=== PATIENT | male | born 1985 | race Caucasian/White ===

== ENCOUNTER 2018-12-18 03:36 | Emergency (ER) | payer OTHER | END 2018-12-18 08:04 | disposition other institution (70) | LOC: ED 03:36 | DX: Z02.89 Encounter for other administrative examinations (principal) ==

== ENCOUNTER 2018-12-18 03:36 | Emergency (ER) | payer OTHER ==
[~2018-12-18] VITALS: Ht 172.7 cm; Wt 68.0 kg
[2018-12-18 03:42] VITALS: Ht 172.7 cm; Wt 68.0 kg
[2018-12-18 07:41] VITALS: BP 129/71
== END 2018-12-18 08:04 | disposition other institution (70) ==
LOC: ED 03:36
DX: G57.81 Other specified mononeuropathies of right lower limb (principal); L30.9 Dermatitis, unspecified; F32.9 Major depressive disorder, single episode, unspecified; Z88.5 Allergy status to narcotic agent; Z91.018 Allergy to other foods

== ENCOUNTER 2020-11-01 11:21 | Emergency (ER) | payer MEDICAID ==
[~2020-11-01] VITALS: Ht 175.3 cm; Wt 78.0 kg
[2020-11-01 11:24] VITALS: BP 128/77; Ht 175.3 cm; Wt 78.0 kg
== END 2020-11-01 12:29 | disposition home or self-care (01) ==
LOC: ED 11:21
DX: T81.49XA Infection following a procedure, other surgical site, initial encounter (principal); L03.114 Cellulitis of left upper limb; L03.113 Cellulitis of right upper limb; Z88.5 Allergy status to narcotic agent; Z91.018 Allergy to other foods

== ENCOUNTER 2020-11-07 15:49 | Emergency (ER) | payer MEDICAID ==
[~2020-11-07] VITALS: Ht 167.6 cm; Wt 77.1 kg
[2020-11-07 16:04] VITALS: Ht 167.6 cm; Wt 77.1 kg
[2020-11-07 16:41] VITALS: BP 126/72
== END 2020-11-07 16:41 | disposition home or self-care (01) ==
LOC: ED 15:49
DX: L03.114 Cellulitis of left upper limb (principal); F15.10 Other stimulant abuse, uncomplicated; L03.113 Cellulitis of right upper limb; Z98.890 Other specified postprocedural states; Z88.5 Allergy status to narcotic agent; Z91.018 Allergy to other foods

== ENCOUNTER 2020-11-16 07:46 | Emergency (ER) | payer OTHER ==
[~2020-11-16] VITALS: Ht 167.6 cm; Wt 79.4 kg
[2020-11-16 07:50] VITALS: BP 138/75; Ht 167.6 cm; Wt 79.4 kg
[2020-11-16] MEDS ORDERED: BACO TOP (08:14)
[2020-11-16] MEDS ORDERED: BACTRIM DS1 TAB PO (08:14)
== END 2020-11-16 08:20 ==
LOC: ED 07:46
DX: Z02.89 Encounter for other administrative examinations (principal)